=== PATIENT | female | born 1985 | race Caucasian/White ===

== ENCOUNTER 2022-02-26 12:13 | Emergency (ER) | payer MEDICAID ==
[2022-02-26] VITALS (9 sets, daily range): BP systolic 129–177; BP diastolic 74–96
[~2022-02-26] VITALS: Ht 160 cm; Wt 79.5 kg
[2022-02-26] MEDS ORDERED: LISINOPRIL10 MG PO (12:30)
[2022-02-26] MEDS ORDERED: ABILIFY20 MG PO (12:30)
[2022-02-26] MEDS ORDERED: FLECAINIDE50 MG PO (12:30)
[2022-02-26] MEDS ORDERED: ATENOLOL50 MG PO (12:31)
[2022-02-26 12:55] LABS: HEMATOCRIT 38.4 % (37.0-47.0); HEMOGLOBIN 13.7 g/dl (12.0-16.0); IMMATURE GRANULOCYTES 0.1 % (0.0-5.0); MEAN CELL VOLUME 92.1 fL CALC (80.0-100.0); MEAN CORPUSCULAR HGB 32.9 pG CALC (26.0-32.0); MEAN CORPUSCULAR HGB CONC 35.7 g/dL CAL (32.0-36.0); NEUT# 4.25 thou/uL (2.00-7.15); RED BLOOD COUNT 4.17 mill/uL (4.20-5.60); RED CELL DISTRI WIDTH 11.7 % (11.5-15.5)
[2022-02-26 13:01] LABS: ALBUMIN 4.5 g/dL (3.2-5.0); ALKALINE PHOSPHATASE 77 u/l (38-126); BILIRUBIN, TOTAL 0.5 mg/dL (0.0-1.4); BUN 10 mg/dL (7-17); BUN/CREATININE RATIO 14 (12-20 (CALC)); CARBON DIOXIDE 28 mmol/l (22-30); CREATININE 0.7 mg/dL (0.5-1.0); GFR FOR AFR.AMER. > 60 ML/MIN (>=60 (CALC)); GFR OTHER RACES > 60 ML/MIN (>=60 (CALC)); SGOT/AST 19 u/l (14-36); TOTAL PROTEIN 7.8 g/dL (6.3-8.2)
[2022-02-26 13:06] LABS: ANION GAP 11 (6-22 (CALC)); CHLORIDE 106 mmol/l (95-108); POTASSIUM 4.3 mmol/l (3.5-5.1); SODIUM 141 mmol/l (137-146)
[2022-02-26 13:11] LABS: MYOGLOBIN 22 ng/mL (0 - 62)
[2022-02-26 14:06] LABS: URINE BILIRUBIN - DIPSTICK NEGATIVE (NEGATIVE); URINE BLOOD DIPSTICK TRACE-INTACT (NEGATIVE); URINE COLOR YELLOW; URINE GLUCOSE - DIPSTICK NEGATIVE (NEGATIVE); URINE KETONE NEGATIVE (NEGATIVE); URINE LEUK ESTERASE NEGATIVE (NEGATIVE); URINE PH 6.5 (4.5-8.0); URINE PROTEIN - DIPSTICK NEGATIVE (NEG-TRACE); URINE SPECIFIC GRAVITY <=1.005; URINE UROBILINOGEN - DIPSTICK 0.2 E.U./dL (0.2)
[2022-02-26 14:15] LABS: URINE NITRITE - DIPSTICK NEGATIVE (Negative)
[2022-02-26] MEDS ORDERED: ONDANSETRON4 MG PO (15:03)
== END 2022-02-26 15:36 | disposition home or self-care (01) ==
LOC: ED 12:13
PROVIDERS: Emergency Medicine
DX: R42 Dizziness and giddiness (principal); R51.9 Headache, unspecified; T46.2X5A Adverse effect of other antidysrhythmic drugs, initial encounter; I45.6 Pre-excitation syndrome; F31.9 Bipolar disorder, unspecified; F17.210 Nicotine dependence, cigarettes, uncomplicated